=== PATIENT | female | born 1980 | race African-American/Black ===

== ENCOUNTER 2018-03-08 20:54 | Emergency (ER) | payer BC ==
[~2018-03-08] VITALS: Ht 165.1 cm; Wt 94.4 kg
[~2018-03-08 20:54] MED LIST: MOBIC15 MG PO; MONTELUKAST SOD10 MG PO; VALIUM5 MG PO
[2018-03-08] MEDS ORDERED: PERCOCET 5/31 TABLET PO (23:19)
[2018-03-09 00:02] VITALS: BP 140/92
== END 2018-03-09 00:02 | disposition home or self-care (01) ==
LOC: EXP 20:54 → EME 20:54 → EXP 03-09 00:02
PROC: 2W3CX1Z Immobilization of Right Lower Arm using Splint (ICD-10-PCS; principal; 2018-03-08)
DX: S52.124A Nondisplaced fracture of head of right radius, initial encounter for closed fracture (principal); M25.421 Effusion, right elbow; W10.1XXA Fall (on)(from) sidewalk curb, initial encounter; Y92.480 Sidewalk as the place of occurrence of the external cause
CPT/HCPCS: 73080; 73090; 73110; 99281; 99283; J3010